=== PATIENT | male | born 1945 | race African-American/Black ===

== ENCOUNTER 2023-11-11 10:14 | Inpatient (IN) | payer OTHER ==
[2023-11-11 11:04] LABS: Hematocrit 40.6 % (38.8-50.0); Hemoglobin 13.7 g/dL (13.5-17.5); Mean Corpuscular HGB CONC 33.7 g/dL (32.0-36.0); Mean Corpuscular Hemoglobin 30.7 pg (27.0-33.0); Mean Platelet Volume 9.7 fl (7.4-10.4); Platelet Count 284 10x3/uL (150-450); Red Blood Cell (RBC) Count 4.46 10x6/uL (4.32-5.72)
[2023-11-11 11:05] LABS: MDiff Complete? YES
[2023-11-11] MEDS ORDERED: Cefepime 2 GM VIAL ONE (11:05)
[2023-11-11 11:19] LABS: ALT (SGPT) 36 U/L (8-55); AST (SGOT) 25 U/L (5-34); Alkaline Phosphatase 87 U/L (40-110); Anion Gap 14 mmol/L (10-20); BUN (Urea Nitrogen) 23 mg/dL (8.4-25.7); Bilirubin, Total 0.9 mg/dL (0.2-1.2); Calc. Creatinine Clearance 0 mL/min (70-130); Calcium 9.7 mg/dL (7.8-10.44); Carbon Dioxide 28 mmol/L (23-31); Chloride 93 mmol/L (98-107); Estimated GFR 37; Globulin 4.1 g/dL (2.4-3.5); Glucose 215 mg/dL (83-110); Potassium 4.1 mmol/L (3.5-5.1); Protein, Total 8.1 g/dL (5.8-8.1); Sodium 131 mmol/L (136-145)
[2023-11-11 11:26] LABS: Band 3 % (5-11); Lymphocytes 7 % (21-51); Monocytes 8 % (0-10); Neutrophil 82 % (42-75)
[2023-11-11 11:28] LABS: Platelet Adequacy Comment Appears Adequate; RBC Morph Comment Within Normal Limits
[2023-11-11] MEDS ORDERED: Morphine 2 MG/ML VIAL ONE (12:57)
[2023-11-11] MEDS: VANCOMYCIN 1.75 GM/350 ML BAG 1.75 GM in Premix 1 BAG IVPB SCH (18:11)
[2023-11-11] MEDS ORDERED: Ondansetron PF 4 MG/2 ML Vial IVP PRN (18:39)
[2023-11-11] MEDS ORDERED: Ondansetron ODT 4 MG TAB PO PRN (18:39)
[2023-11-11] MEDS ORDERED: Acetaminophen 650 MG Suppository PR PRN (18:39)
[2023-11-11] MEDS ORDERED: Glucagon 1 MG/ML KIT IM PRN (18:43)
[2023-11-11] MEDS ORDERED: Dextrose 50% Abboject 50 ML SYRINGE SLOW IVP PRN (18:43)
[2023-11-11] MEDS ORDERED: Dextrose 5% in Water 1,000 ML IV PRN (18:43)
[2023-11-11] MEDS ORDERED: Acetaminophen 325 MG TAB ONE (19:43)
[2023-11-11] MEDS: Acetaminophen 325 MG TAB PO PRN (19:47)
[2023-11-11 21:53] VITALS: BMI 26.5
[2023-11-12] MEDS: Sodium Chloride 0.9% 1,000 ML IV SCH (00:14)
[2023-11-12] MEDS: Ibuprofen 200 MG TAB PO SCH (04:56)
[2023-11-12 05:31] LABS: Anion Gap 12 mmol/L (10-20); BUN (Urea Nitrogen) 24 mg/dL (8.4-25.7); Calc. Creatinine Clearance 53 mL/min (70-130); Calcium 8.9 mg/dL (7.8-10.44); Carbon Dioxide 26 mmol/L (23-31); Chloride 100 mmol/L (98-107); Estimated GFR 52; Glucose 159 mg/dL (83-110); Potassium 4.2 mmol/L (3.5-5.1); Sodium 134 mmol/L (136-145)
[2023-11-12 05:36] LABS: #Monocytes 1.1 10x3/uL (0.0-1.1); #Neutrophils 6.5 10x3/uL (1.5-8.4); %Basophils 0.5 % (0.0-2.0); %Eosinophils 0.4 % (0.0-6.0); %Lymphocytes 10.9 % (18.0-47.0); %Monocytes 12.5 % (0.0-10.0); %Neutrophils 75.2 % (40.0-75.0); Hematocrit 36.3 % (38.8-50.0); Hemoglobin 12.3 g/dL (13.5-17.5); Mean Corpuscular HGB CONC 33.9 g/dL (32.0-36.0); Mean Corpuscular Hemoglobin 30.8 pg (27.0-33.0); Mean Platelet Volume 9.6 fl (7.4-10.4); Platelet Count 242 10x3/uL (150-450); RBC Distribution Width 12.9 % (11.5-14.5); Red Blood Cell (RBC) Count 3.99 10x6/uL (4.32-5.72); White Blood Cell (WBC) Count 8.6 10x3/uL (3.5-10.5)
[2023-11-12] MEDS: Vancomycin 1 GM in Sodium Chloride 0.9% 250 ML 250 ML IVPB SCH (08:50)
[2023-11-12] MEDS: Enoxaparin 40 MG (0.4 mL) SYRINGE SC SCH (10:14)
[2023-11-12] MEDS: traMADol HCl 50 MG TAB PO PRN (19:02)
[2023-11-12] MEDS: Famotidine 20 MG TAB PO SCH (20:45)
[2023-11-12] MEDS: Gabapentin 300 MG CAP PO SCH (20:45)
[2023-11-12] MEDS: traZODone HCl 50 MG TAB PO SCH (21:45)
[2023-11-12] MEDS: HYDROcodone/Acetaminophen 5/325 mg Tablet PO SCH (22:28)
[2023-11-13 03:42] LABS: Vancomycin, Trough 22.1 ug/mL
[2023-11-13] MEDS: Atorvastatin Calcium 20 MG TAB PO SCH (08:25)
[2023-11-13] MEDS: Hydrochlorothiazide 25 MG TAB PO SCH (08:25)
[2023-11-13] MEDS ORDERED: METFORMIN HCL 750 MG PO SCH (09:00)
[2023-11-13] MEDS: HYDROcodone/Acetaminophen 5/325 mg Tablet PO PRN (09:16)
[2023-11-13] MEDS ORDERED: Iopamidol 300 61% 100 ML VIAL FS ONE (10:12)
[2023-11-13 12:26] LABS: #Eosinphils 0.1 10x3/uL (0.0-0.5); #Monocytes 0.7 10x3/uL (0.0-1.1); #Neutrophils 5.5 10x3/uL (1.5-8.4); %Basophils 0.6 % (0.0-2.0); %Eosinophils 0.8 % (0.0-6.0); %Lymphocytes 13.2 % (18.0-47.0); %Monocytes 9.7 % (0.0-10.0); %Neutrophils 75.4 % (40.0-75.0); Hematocrit 39.3 % (38.8-50.0); Hemoglobin 13.1 g/dL (13.5-17.5); Mean Corpuscular HGB CONC 33.3 g/dL (32.0-36.0); Mean Corpuscular Hemoglobin 30.3 pg (27.0-33.0); Mean Platelet Volume 9.6 fl (7.4-10.4); Platelet Count 323 10x3/uL (150-450); Red Blood Cell (RBC) Count 4.32 10x6/uL (4.32-5.72); White Blood Cell (WBC) Count 7.3 10x3/uL (3.5-10.5)
[2023-11-13 12:49] LABS: Anion Gap 14 mmol/L (10-20); BUN (Urea Nitrogen) 23 mg/dL (8.4-25.7); Calc. Creatinine Clearance 55 mL/min (70-130); Calcium 8.8 mg/dL (7.8-10.44); Carbon Dioxide 25 mmol/L (23-31); Chloride 102 mmol/L (98-107); Estimated GFR 54; Glucose 200 mg/dL (83-110); Potassium 4.1 mmol/L (3.5-5.1); Sodium 137 mmol/L (136-145)
[2023-11-13 20:16] LABS: Vancomycin, Trough 7.6 ug/mL
[2023-11-13] MEDS: Insulin Regular 300 UNITS/3 ML VIAL SC PRN (21:00)
[2023-11-13] MEDS: Vancomycin HCl 750 MG in Sodium Chloride 0.9% 250 ML 250 ML IVPB SCH (21:10)
[2023-11-14 05:35] LABS: #Eosinphils 0.1 10x3/uL (0.0-0.5); #Monocytes 0.9 10x3/uL (0.0-1.1); #Neutrophils 4.4 10x3/uL (1.5-8.4); %Basophils 0.5 % (0.0-2.0); %Eosinophils 1.8 % (0.0-6.0); %Lymphocytes 17.2 % (18.0-47.0); %Monocytes 13.5 % (0.0-10.0); %Neutrophils 66.7 % (40.0-75.0); Hematocrit 34.5 % (38.8-50.0); Hemoglobin 11.6 g/dL (13.5-17.5); Mean Corpuscular HGB CONC 33.6 g/dL (32.0-36.0); Mean Corpuscular Hemoglobin 30.2 pg (27.0-33.0); Mean Corpuscular Volume 89.8 fl (81.2-95.1); Mean Platelet Volume 9.2 fl (7.4-10.4); Platelet Count 291 10x3/uL (150-450); RBC Distribution Width 12.8 % (11.5-14.5); Red Blood Cell (RBC) Count 3.84 10x6/uL (4.32-5.72); White Blood Cell (WBC) Count 6.5 10x3/uL (3.5-10.5)
[2023-11-14 05:40] LABS: Anion Gap 14 mmol/L (10-20); BUN (Urea Nitrogen) 24 mg/dL (8.4-25.7); Calc. Creatinine Clearance 58 mL/min (70-130); Calcium 8.8 mg/dL (7.8-10.44); Carbon Dioxide 27 mmol/L (23-31); Chloride 100 mmol/L (98-107); Estimated GFR 57; Glucose 153 mg/dL (83-110); Potassium 3.7 mmol/L (3.5-5.1); Sodium 137 mmol/L (136-145)
[2023-11-14] MEDS: Vancomycin HCl 750 MG in Sodium Chloride 0.9% 250 ML 250 ML IVPB SCH (09:24)
[2023-11-14] MEDS: Hydrochlorothiazide 25 MG TAB PO SCH (09:24)
[2023-11-14] MEDS: Piperacillin/Tazobactam 3.375 GM in Sodium Chloride 0.9% 100 ML IVPB SCH ×2 (10:17→14:25)
[2023-11-14] MEDS: Clindamycin/D5W 900 MG in Premix 1 BAG IVPB SCH (15:06)
[2023-11-15 03:54] LABS: #Eosinphils 0.2 10x3/uL (0.0-0.5); #Monocytes 0.7 10x3/uL (0.0-1.1); #Neutrophils 2.9 10x3/uL (1.5-8.4); %Basophils 0.8 % (0.0-2.0); %Eosinophils 3.5 % (0.0-6.0); %Lymphocytes 24.1 % (18.0-47.0); %Monocytes 14.4 % (0.0-10.0); %Neutrophils 56.8 % (40.0-75.0); Hematocrit 33.4 % (38.8-50.0); Hemoglobin 11.2 g/dL (13.5-17.5); Mean Corpuscular HGB CONC 33.5 g/dL (32.0-36.0); Mean Corpuscular Hemoglobin 30.4 pg (27.0-33.0); Mean Corpuscular Volume 90.8 fl (81.2-95.1); Mean Platelet Volume 9.5 fl (7.4-10.4); Platelet Count 304 10x3/uL (150-450); RBC Distribution Width 12.8 % (11.5-14.5); Red Blood Cell (RBC) Count 3.68 10x6/uL (4.32-5.72); White Blood Cell (WBC) Count 5.2 10x3/uL (3.5-10.5)
[2023-11-15 04:20] LABS: Anion Gap 12 mmol/L (10-20); BUN (Urea Nitrogen) 20 mg/dL (8.4-25.7); Calc. Creatinine Clearance 62 mL/min (70-130); Calcium 8.6 mg/dL (7.8-10.44); Carbon Dioxide 26 mmol/L (23-31); Chloride 102 mmol/L (98-107); Estimated GFR 62; Glucose 134 mg/dL (83-110); Potassium 3.6 mmol/L (3.5-5.1); Sodium 136 mmol/L (136-145)
[2023-11-15 08:44] LABS: Vancomycin, Trough 11.7 ug/mL
[2023-11-15] MEDS: Losartan 50 MG TAB PO SCH (09:14)
[2023-11-15] MEDS: traZODone HCl 50 MG TAB PO SCH (21:48)
[2023-11-15] MEDS: Morphine 2 MG/ML VIAL SLOW IVP PRN (22:27)
[2023-11-16 03:43] LABS: #Basophils 0.1 10x3/uL (0.0-0.2); #Eosinphils 0.3 10x3/uL (0.0-0.5); #Monocytes 0.7 10x3/uL (0.0-1.1); #Neutrophils 3.1 10x3/uL (1.5-8.4); %Basophils 0.9 % (0.0-2.0); %Eosinophils 5.1 % (0.0-6.0); %Monocytes 12.5 % (0.0-10.0); %Neutrophils 56.1 % (40.0-75.0); Hematocrit 34.8 % (38.8-50.0); Hemoglobin 11.4 g/dL (13.5-17.5); Mean Corpuscular HGB CONC 32.8 g/dL (32.0-36.0); Mean Corpuscular Hemoglobin 29.5 pg (27.0-33.0); Mean Corpuscular Volume 89.9 fl (81.2-95.1); Mean Platelet Volume 9.2 fl (7.4-10.4); Platelet Count 356 10x3/uL (150-450); RBC Distribution Width 12.8 % (11.5-14.5); Red Blood Cell (RBC) Count 3.87 10x6/uL (4.32-5.72); White Blood Cell (WBC) Count 5.4 10x3/uL (3.5-10.5)
[2023-11-16 04:18] LABS: Anion Gap 13 mmol/L (10-20); BUN (Urea Nitrogen) 19 mg/dL (8.4-25.7); Calc. Creatinine Clearance 57 mL/min (70-130); Calcium 8.8 mg/dL (7.8-10.44); Carbon Dioxide 26 mmol/L (23-31); Chloride 101 mmol/L (98-107); Estimated GFR 56; Glucose 132 mg/dL (83-110); Potassium 3.6 mmol/L (3.5-5.1); Sodium 136 mmol/L (136-145)
[2023-11-16] MEDS: Piperacillin/Tazobactam 3.375 GM in Sodium Chloride 0.9% 100 ML IVPB SCH (04:29)
[2023-11-16 20:24] LABS: Vancomycin, Trough 11.9 ug/mL
[2023-11-16] MEDS: traZODone HCl 50 MG TAB PO SCH (22:02)
[2023-11-17 03:57] LABS: #Eosinphils 0.2 10x3/uL (0.0-0.5); #Monocytes 0.7 10x3/uL (0.0-1.1); #Neutrophils 2.5 10x3/uL (1.5-8.4); %Basophils 0.4 % (0.0-2.0); %Eosinophils 4.9 % (0.0-6.0); %Lymphocytes 29.3 % (18.0-47.0); %Monocytes 13.4 % (0.0-10.0); %Neutrophils 51.6 % (40.0-75.0); Hematocrit 34.2 % (38.8-50.0); Hemoglobin 11.7 g/dL (13.5-17.5); Mean Corpuscular HGB CONC 34.2 g/dL (32.0-36.0); Mean Corpuscular Hemoglobin 30.5 pg (27.0-33.0); Mean Corpuscular Volume 89.1 fl (81.2-95.1); Mean Platelet Volume 9.2 fl (7.4-10.4); Platelet Count 397 10x3/uL (150-450); RBC Distribution Width 12.6 % (11.5-14.5); Red Blood Cell (RBC) Count 3.84 10x6/uL (4.32-5.72); White Blood Cell (WBC) Count 4.9 10x3/uL (3.5-10.5)
[2023-11-17 04:18] LABS: Anion Gap 11 mmol/L (10-20); BUN (Urea Nitrogen) 18 mg/dL (8.4-25.7); Calc. Creatinine Clearance 58 mL/min (70-130); Calcium 8.8 mg/dL (7.8-10.44); Carbon Dioxide 26 mmol/L (23-31); Chloride 102 mmol/L (98-107); Estimated GFR 57; Glucose 136 mg/dL (83-110); Potassium 3.8 mmol/L (3.5-5.1); Sodium 135 mmol/L (136-145)
[2023-11-17 12:23] VITALS: BP 173/95; TEMP 98.2
== END 2023-11-17 12:00 | disposition home health service (06) | DRG 872 ==
LOC: CSHERS 10:14 → SUATTDRO 10:14 → CSHERHOLD 15:55 → CSHTELE 20:57
PROVIDERS: ADMIT Family Medicine; ATTEND Internal Medicine
PROC: 3E03329 Introduction of Other Anti-infective into Peripheral Vein, Percutaneous Approach (ICD-10-PCS; principal; 2023-11-11)
PROC: 0HBLXZZ Excision of Left Lower Leg Skin, External Approach (ICD-10-PCS; 2023-11-14)
DX: A41.9 Sepsis, unspecified organism (principal); L03.116 Cellulitis of left lower limb; E11.52 Type 2 diabetes mellitus with diabetic peripheral angiopathy with gangrene; L02.416 Cutaneous abscess of left lower limb; N17.9 Acute kidney failure, unspecified; E11.628 Type 2 diabetes mellitus with other skin complications; I10 Essential (primary) hypertension; L97.529 Non-pressure chronic ulcer of other part of left foot with unspecified severity; E11.621 Type 2 diabetes mellitus with foot ulcer; Z79.899 Other long term (current) drug therapy; Z98.890 Other specified postprocedural states
CPT/HCPCS: 36415; 36416; 80048; 80053; 80202; 83605; 84145; 85025; 86850; 86900; 86901; 87040; 93005; 96365; 96374; 96375; 97139; J0692; J1650; J1815; J2272; J2543; J3370; J3490; J7050; Q9967